=== PATIENT | female | born 1965 | race Caucasian/White ===

== ENCOUNTER → 2016-07-16 | Outpatient (CLI) | payer BC ==
[~2016-07-16] MED LIST: CHOL100010 PO; CITA40TA12 PO; FERR1TAB23 PO; LEVO100T PO; OMEG12006; ROPI1TAB29 PO; WLLSR100 PO
[2016-07-16 15:38] LABS: BASO % 0.5 %; BASO ABS # 0.02 K/uL (0-0.2); COMPLETE YES; EOS % 1.8 %; HEMATOCRIT 38.6 % (37-47); IG% 0.2 %; LYMPH ABS # 0.93 K/uL (1.2-3.4); MEAN CELL VOLUME 91.7 fL (80-100); MEAN CORPUSCULAR HEMOGLOBIN 31.4 pg (25-34); MEAN CORPUSCULAR HGB CONC 34.2 g/dl (32-36); MEAN PLATELET VOLUME 10.1 fL (7.4-10.4); NEUT % 71.5 %; PLATELET COUNT 169 K/uL (130-400); RED BLOOD COUNT 4.21 M/uL (4.2-5.4); WHITE BLOOD COUNT 4.42 K/uL (4.8-10.8)
== END | disposition home or self-care (01) ==
LOC: C.LAB1850 14:27
PROVIDERS: ATTEND Internal Medicine
DX: E03.9 Hypothyroidism, unspecified (principal); D64.9 Anemia, unspecified

== ENCOUNTER → 2016-12-26 | Outpatient (CLI) | payer BC | END | disposition home or self-care (01) | LOC: C.PAPS 14:42 | PROVIDERS: ATTEND Obstetrics & Gynecology | DX: Z01.419 Encounter for gynecological examination (general) (routine) without abnormal findings (principal); Z12.39 Encounter for other screening for malignant neoplasm of breast; N95.2 Postmenopausal atrophic vaginitis ==

== ENCOUNTER → 2017-07-08 | Outpatient (CLI) | payer BC ==
--- NOTE | 2017-07-09 15:38 | MAMMOGRAPHY REPORT ---
BILATERAL FIRST EVER DIGITAL SCREENING MAMMOGRAM TOMOSYNTHESIS WITH CAD: 07/08/2017 CLINICAL HISTORY: Baseline examination. TECHNIQUE: Bilateral breast tomosynthesis in addition to standard 2D mammography was performed. Curre nt study was also evaluated with a Computer Aided Detection (CAD) system. COMPARISON: No prior exams were available for comparison. BREAST COMPOSITION: There are scattered areas of fibroglandular density in both breasts. FINDINGS: There is an asymmetry in the lateral, middle to posterior left breast on the CC view, that partially effaces on the corresponding tomosynthesis images although additional spot compression emelia osynthesis views with possible ultrasound are recommended. A circumscribed 3 mm mass in the medial a nterior left breast could represent a cyst although definitive characterization with targeted ultraso und and possible additional mammographic views is recommended. There are a few benign-appearing round microcalcifications in the breasts. No other suspicious mass, architectural distortion or cluster of microcalcifications is seen. IMPRESSION: ACR BI-RADS CATEGORY 0: INCOMPLETE EVALUATION: NEED ADDITIONAL IMAGING EVALUATION The asymmetry in the lateral left breast, and 3 mm circumscribed mass in the medial left breast need additional imaging evaluation. The patient will be called to schedule an appointment. Approximately 10% of breast cancers are not detected with mammography. A negative mammographic report should not delay biopsy if a clinically suggestive mass is present. Jeanie Muñoz M.D. ay/:07/08/2017 16:26:42 Antenna Specialist: Sylvia MEANS (R)), [facility] [address] letter sent: Addl Imaging 0 BI-RADS Code: ACR BI-RADS Category 0: Incomplete Evaluation: Need Additional Imaging Evaluation
== END | disposition home or self-care (01) ==
LOC: C.MAMM 15:14
PROVIDERS: ATTEND Obstetrics & Gynecology
DX: Z12.31 Encounter for screening mammogram for malignant neoplasm of breast (principal); N64.9 Disorder of breast, unspecified; N63.20 Unspecified lump in the left breast, unspecified quadrant

== ENCOUNTER → 2017-07-22 | Outpatient (CLI) | payer BC ==
--- NOTE | 2017-07-22 13:30 | MAMMOGRAPHY REPORT ---
UNILATERAL LEFT DIGITAL DIAGNOSTIC MAMMOGRAM TOMOSYNTHESIS AND TARGETED LEFT ULTRASOUND: 07/22/2017 CLINICAL HISTORY: Callback from recent baseline screening mammogram for a small circumscribed 3 mm ma ss in the medial left breast and an asymmetry in the lateral left breast. TECHNIQUE: Spot compression left CC and MLO tomosynthesis images were obtained. COMPARISON: Comparison is made to exam dated: 07/08/2017 mammogram - [facility]. BREAST COMPOSITION: The tissue of the left breast is heterogeneously dense, which may obscure small masses. FINDINGS: The spot compression views of the left breast demonstrate effacement of the small asymmetry in the lateral middle one third of the breast best seen on the CC view. There is no evidence of per sistent architectural distortion. There is a possible well-circumscribed low-density 7.3 mm mass in the superior middle one third of the left breast on the spot compression MLO view. No suspicious regina rocavitation indications are seen. Targeted ultrasound was performed in both the medial and lateral left breast. In the left and o'cloc k breast, 2 cm from the nipple, there is a round circumscribed anechoic benign simple cyst measuring 2.4 x 2.4 x 3.0 mm. This correlates with the circumscribed mammographic mass and is benign. A secon d circumscribed anechoic benign simple cyst is identified in the 2:00 left breast, 4 cm from the nipp le, measuring 6.4 x 4.9 x 5.9 mm, thought to correlate with the circumscribed low-density mass identi fied in the superior left breast on the spot compression MLO view. This also represents a benign cys t. No suspicious solid mass is seen throughout the remainder of the lateral left breast in the area is effacing asymmetry. This asymmetry most likely represented normal overlapping fiber glandular tis miguel angel. However, given that it was identified on a baseline exam, a short interval follow-up left diagn ostic tomosynthesis mammogram and possible ultrasound is recommended to ensure stability in 6 months. IMPRESSION: ACR-BI-RADS CATEGORY 3: PROBABLY BENIGN, TARGETED ULTRASOUND ACR-BI-RADS CATEGORY 3: PRO BABLY BENIGN 1. The 3 mm nodular asymmetry versus mass in the medial left breast correlates with a benign anechoi c simple cyst seen in the 9:00 left breast on targeted ultrasound. 2. An asymmetry in the lateral left breast on the cc view effaces with the additional supplemental s pot compression tomosynthesis images and no suspicious sonographic correlate was identified. Althoug h this most likely represented normal overlapping tissue, given that it was seen on a baseline exam a short interval follow-up left diagnostic tomosynthesis mammogram and possible ultrasound is recommen ded to ensure stability in 6 months. 3. An incidental 7 mm circumscribed mass was identified in the superior left breast on the spot comp ression MLO view which corresponds to a benign cyst seen in the 2:00 left breast on ultrasound. These results and recommendations were discussed with the patient at the time of the exam. She tenta tively scheduled the follow-up appointment prior to leaving our department. Approximately 10% of breast cancers are not detected with mammography. A negative mammographic report should not delay biopsy if a clinically suggestive mass is present. Jeanie Muñoz M.D. ay/:07/22/2017 10:55:00 Computer Compositor: Jaylon OTERO(Anastasiya)(M), [facility] letter sent: Follow Up Recommended 3 BI-RADS Code: ACR-BI-RADS Category 3: Probably Benign Ultrasound BI-RADS: ACR-BI-RADS Category 3: Pr obably Benign
== END | disposition home or self-care (01) ==
LOC: C.MAMM 09:11
PROVIDERS: ATTEND Obstetrics & Gynecology
DX: N64.89 Other specified disorders of breast (principal); N63.21 Unspecified lump in the left breast, upper outer quadrant

== ENCOUNTER → 2017-08-26 | Day surgery (SDC) | payer BC, OTHER ==
[2017-08-11 09:50] VITALS: Ht 160 cm; Wt 62.7 kg
[~2017-08-26] VITALS: Ht 160 cm; Wt 62.7 kg
[~2017-08-26] MED LIST changes: -CHOL100010 PO; -CITA40TA12 PO; +CYAN10005 PO; -FERR1TAB23 PO; +LIDOCAINE HCL 2% 2 ML VIAL (20MG/ML) ONE; -OMEG12006; +PROPOFOL IV EMULSION 10 MG/ML 20 ML VIAL IV ONE; +SERT-234 PO
[2017-08-26 10:21] VITALS: TEMP 36.7
--- NOTE | 2017-08-26 10:51 | Endo History and Physical ---
History & Physical Date of Service: Aug 26, 2017. Chief Complaint: Screening Referring Physician: Dr Tillman, Dr Ayoub History of Present Illness 52 yo CF who presents for screening colonoscopy. Past Medical History Anxiety, Thyroid Disease, Depression Past Surgical History Hx Cardiac Surgery: No Hx Internal Defibrillator: No Hx Pacemaker: No Hx Abdominal Surgery: Yes () Hx of Implantable Prosthesis: No Hx Post-Op Nausea and Vomiting: No Hx Cancer Surgery: No Hx Thoracic Surgery: No Hx Orthopedic: Yes (LT FOOT SURGERY) Hx Urinary Tract Surgery: No Family History None Social History Smoking Status: Never Smoker Hx Substance Use: No Hx Alcohol Use: No Allergies Coded Allergies: No Known Drug Allergy (Verified Allergy, Unknown, NKDA, 08/26/17) Current Medications Reported Home Medications Medications Dose Route/Sig Max Daily Dose Days Date Category Vitamin B-12 (Cyanocobalamin) 1,000 Mcg Tab 1,000 Mcg PO QAM 08/11/17 Reported Zoloft (Sertraline HCl) 100 Mg Tab 100 Mg PO QAM 08/11/17 Reported Bupropion HCl Sr (Bupropion HCl) 100 Mg Tabcr 1 Tab PO BID 02/06/15 Reported Requip (Ropinirole Hydrochloride) 1 Mg Tab 1-2 Tabs PO HS 11/09/14 Reported Synthroid (Levothyroxine Sodium) 100 Mcg Tab 100 Mcg PO QAM 11/09/14 Reported Vital Signs Weight (Kilograms): 62.73 Height (Feet): 5 Height (Inches): 3 Date Time Temp Pulse Resp B/P (MAP) Pulse Ox O2 Delivery O2 Flow Rate FiO2 08/26/17 10:21 36.7 64 20 111/74 (86) 99 Room Air Physical Exam General Appearance: WD/WN, no apparent distress Respiratory/Chest: Auscultation: breath sounds normal Cardiovascular: Heart Auscultation: RRR Abdomen: Bowel Sounds: normal Inspection & Palpation: soft, non-distended, no tenderness, guarding & rebound Assessment and Plan Assessment: 52 yo CF who presents for screening colonoscopy. Plan: Proceed with colonoscopy.
--- NOTE | 2017-08-26 11:38 | GI REPORT ---
Procedure Date: 08/26/2017 11:10 AM Procedure: Colonoscopy Indications: Screening for colorectal malignant neoplasm Medicines: Monitored Anesthesia Care Complications: No immediate complications. Estimated Blood Loss: Estimated blood loss: none. Procedure: Pre-Anesthesia Assessment: - Prior to the procedure, a History and Physical was performed, and patient medications and allergies were reviewed. The patient's tolerance of previous anesthesia was also reviewed. The risks and benefits of the procedure and the sedation options and risks were discussed with the patient. All questions were answered, and informed consent was obtained. Prior Anticoagulants: The patient has taken no previous anticoagulant or antiplatelet agents. ASA Grade Assessment: II - A patient with mild systemic disease. After reviewing the risks and benefits, the patient was deemed in satisfactory condition to undergo the procedure. After I obtained informed consent, the scope was passed under direct vision. Throughout the procedure, the patient's blood pressure, pulse, and oxygen saturations were monitored continuously. The scope was introduced through the anus and advanced to the terminal ileum. The colonoscopy was performed without difficulty. The patient tolerated the procedure well. The quality of the bowel preparation was good. The terminal ileum, ileocecal valve, appendiceal orifice, and rectum were photographed. Findings: The perianal and digital rectal examinations were normal. Non-bleeding internal hemorrhoids were found during retroflexion. The hemorrhoids were small. Impression: - Non-bleeding internal hemorrhoids. - No specimens collected. Recommendation: - Resume previous diet. - Continue present medications. - Repeat colonoscopy in 10 years for surveillance. - Return to primary care physician as previously scheduled. Brady Turner DO 08/26/2017 11:38:22 AM This report has been signed electronically. Note Initiated On: 08/26/2017 11:10 AM I attest to the content of the Intraoperative Record and orders documented therein, exceptions below
[2017-08-26 12:05] VITALS: BP 109/67; PULSE 68; O2SAT 99
--- NOTE | 2017-08-26 12:54 | Discharge Instructions ---
Endoscopy Patient Instructions Date / Procedure(s) Performed Aug 26, 2017. Colonoscopy Allergy Information Coded Allergies: No Known Drug Allergy (Verified Allergy, Unknown, NKDA, 08/26/17) Discharge Date / Findings Aug 26, 2017. Internal hemorrhoids Medication Instructions OK to resume all medications today as prescribed Reported Home Medications Medications Dose Route/Sig Max Daily Dose Days Date Category Vitamin B-12 (Cyanocobalamin) 1,000 Mcg Tab 1,000 Mcg PO QAM 08/11/17 Reported Zoloft (Sertraline HCl) 100 Mg Tab 100 Mg PO QAM 08/11/17 Reported Bupropion HCl Sr (Bupropion HCl) 100 Mg Tabcr 1 Tab PO BID 02/06/15 Reported Requip (Ropinirole Hydrochloride) 1 Mg Tab 1-2 Tabs PO HS 11/09/14 Reported Synthroid (Levothyroxine Sodium) 100 Mcg Tab 100 Mcg PO QAM 11/09/14 Reported Provider Instructions Activity Restrictions - No exercising or heavy lifting for 24 hours. - Do not drink alcohol the day of the procedure. - Do not drive a car or operate machinery until the day after the procedure. - Do not make any important decisions or sign important papers in 24 hours after the procedure. Following Day: - Return to full activity which may include returning to work/school. Diet Start your diet with liquids and light foods (jello, soup, juice, toast). Then eat your usual diet if not nauseated. Treatment For Common After Affects For mild abdominal pain, bloating, or excessive gas: - Rest - Eat lightly - Lie on right side Follow-Up Information Follow-up with Dr Tillman, Dr Ayoub as scheduled Anesthesia Information What You Should Know You have had a procedure that required some medicine to reduce anxiety and discomfort. This treatment is called moderate sedation. After receiving the treatment, you may be sleepy, but you will be able to breathe on your own. The effects of the treatment may last for several hours. Follow these instructions along with Activity/Diet recommendations noted above: * Do NOT do anything where dizziness or clumsiness would be dangerous. * Rest quietly at home today, then you can be up and about tomorrow. * Have a responsible person stay with you the rest of today. * You may have had an I.V. today. If so, you may take the dressing off later today. Recommendations Call your doctor if: * Trouble breathing * Continuous vomiting for more than 24 hours * Temperature above 101 degrees * Severe abdominal pain or bloating * Pain not relieved by pain medicine ordered * There is increased drainage or redness from any incision * A large amount of rectal bleeding greater than 2-3 tablespoons. (If you had a polyp/s removed or have hemorrhoids, a small amount of blood - from the rectum is to be expected.) * You have any unanswered questions or concerns. IN THE EVENT OF A SERIOUS EMERGENCY, GO TO THE NEAREST EMERGENCY ROOM Your discharge instructions were prepared by provider Brady Turner. Patient Instructions Signature Page Nataliia Adrian Patient (or Guardian) Signature/Date: I have read and understand the instructions given to me by my caregivers. Caregiver/RN/Doctor Signature/Date: The above-named patient and/or guardian has received patient instructions on this date. + Original Patient Signature Page (only) stays with chart. Please make copy for patient.
--- NOTE | 2017-08-26 13:03 | Anesthesiology Progress Note ---
Anesthesia Post Op Note Date & Time Aug 26, 2017 at 13:02 Vital Signs Vital Signs Past 12 Hours Date Time Temp Pulse Resp B/P (MAP) Pulse Ox O2 Delivery O2 Flow Rate FiO2 08/26/17 12:05 68 16 109/67 (81) 99 Room Air 08/26/17 11:50 77 16 101/65 (77) 97 Room Air 08/26/17 11:35 74 16 87/54 (65) 94 Room Air 08/26/17 10:21 36.7 64 20 111/74 (86) 99 Room Air Notes Mental Status: alert / awake / arousable, participated in evaluation Pt Amnestic to Procedure: Yes Nausea / Vomiting: adequately controlled Pain: adequately controlled Airway Patency, RR, SpO2: stable & adequate BP & HR: stable & adequate Hydration State: stable & adequate Anesthetic Complications: no major complications apparent
== END | disposition home or self-care (01) ==
LOC: C.GI 09:51
PROVIDERS: ATTEND Internal Medicine
DX: Z12.11 Encounter for screening for malignant neoplasm of colon (principal); K64.8 Other hemorrhoids; F32.9 Major depressive disorder, single episode, unspecified; M19.90 Unspecified osteoarthritis, unspecified site; Z98.890 Other specified postprocedural states; Z79.899 Other long term (current) drug therapy